=== PATIENT | male | born 1935 | race Caucasian/White ===

== ENCOUNTER 2021-06-16 15:42 | Inpatient (IN) | payer MEDICARE ==
[~2021-06-16] VITALS: Ht 180.3 cm; Wt 79.1 kg
[2021-06-16 16:42] LABS: BASO % 0.3 % (0.0-2.0); EOS # 0.2 (0.0-0.7); EOS % 1.5 % (0-4.0); GRAN # 12.4 (1.4-6.5); GRAN % 87.4 % (42.2-75.2); HEMOGLOBIN 13.6 g/dl (13.5-18.0); LYMPH # 0.4 (1.2-3.4); LYMPH % 2.8 % (20.0-51.0); MEAN CELL VOLUME 94 fl (80.0-100.0); MEAN CORPUSCULAR HEMOGLOBIN 31 pg (27.0-31.0); MEAN CORPUSCULAR HGB CONC 33 g/dl (33.0-37.0); MEAN PLATELET VOLUME 9.4 fl (7.4-10.4); MONO # 1.1 (0.1-0.6); MONO % 7.6 % (1.7-9.3); PLATELET COUNT 314 K/mm3 (130-400); RED BLOOD COUNT 4.36 M/mm3 (4.20-5.60); REDCELL DISTRIBUTION WIDTH-CV 12.6 % (11.5-14.5)
[2021-06-16 16:56] LABS: BILIRUBIN,TOTAL 0.9 mg/dL (0.2-1.2); C-REACTIVE PROTEIN 0.3 mg/dL (0.00-0.50); CALCIUM 9.7 mg/dL (8.4-10.2); CREATININE, serum 1.62 mg/dL (0.72-1.25); POTASSIUM 4.5 mmol/L (3.5-4.5); TOTAL PROTEIN 7.8 gm/dL (6.2-8.1)
[2021-06-16 19:16] LABS: MAGNESIUM 1.7 mg/dL (1.6-2.6)
[2021-06-16 19:23] LABS: TROPONIN-I 0.022 ng/mL (0.00-0.033)
[2021-06-16] MEDS ORDERED: PRESERVISION1 SGL PO (20:53)
[2021-06-16] MEDS ORDERED: LANTUS SOLOS100 U/ML SQ (20:53)
[2021-06-16] MEDS ORDERED: PRILOTC PO (20:55)
[2021-06-16] MEDS ORDERED: REFRESH PLUS 00.4 M1 OP (20:55)
[2021-06-16] MEDS ORDERED: HYGROTON 2525 MG/TAB PO (20:56)
[2021-06-16] MEDS ORDERED: VOLTAREN GEL 1%1 TU TP (20:56)
[2021-06-16] MEDS ORDERED: GLUCOTROL10 MG PO (20:56)
[2021-06-16] MEDS ORDERED: PRINIVIL40 MG PO (20:57)
[2021-06-16] MEDS ORDERED: ASPIRIN 81M81 MG/TA2 PO (20:57)
[2021-06-16] MEDS ORDERED: ONE-A-DAY ESSE1 EACH PO (20:57)
[2021-06-16] MEDS ORDERED: VALIUM 5MG T5 MG/TAB PO (20:57)
[2021-06-16] MEDS ORDERED: MELATONIN5 M1 SL (20:58)
[2021-06-16] MEDS ORDERED: ADVIL PM 38 MG-1 TAB PO (20:58)
[2021-06-16] MEDS ORDERED: TYLENOL 8 HR PO (20:59)
[2021-06-16 22:20] VITALS: BP 120/73; PULSE 79; TEMP 98.6
--- NOTE | 2021-06-16 22:20 | NUR ---
Arrived to room 316 from ED via stretcher. A&Ox3. Oriented to room and policy. Denies shortness of breath/pain/nausea. Admission assessment complete. Med rec commpleted. VS stable. Very unsteady gait. States he just feels very weak. Plan of care discussed for this shift to include meds/IV fluids/calling for assistance to bathroom due to high fall risk/calling for questions/concerns. Verbalizes understanding/denies needs. Call light in reach/bed alarm on. Will monitor.
[2021-06-16 23:35] VITALS: BP 124/70; PULSE 79; TEMP 98.4
[2021-06-17] VITALS (9 sets, daily range): BP systolic 111–132; BP diastolic 46–76; PULSE 64–89; TEMP 97.7–98.5
[2021-06-17 03:25] LABS: COLLECTION METHOD CLEAN CATCH
[2021-06-17 03:32] LABS: MUCOUS Present /lpf; PH 5 (5-8); SQUAMOUS EPITHELIAL 0-2 /hpf; URINE APPEARANCE Clear; URINE BACTERIA None Seen /hpf; URINE BILIRUBIN Negative (NEGATIVE); URINE BLOOD Negative (NEGATIVE); URINE COLOR Yellow; URINE GLUCOSE Negative (NEGATIVE); URINE KETONE Negative (NEGATIVE); URINE LEUKOCYTE ESTERASE Negative (NEGATIVE); URINE NITRATE Negative (NEGATIVE); URINE PROTEIN(semi-quant) Negative (NEGATIVE); URINE RBC 0-2 /hpf; URINE UROBILINOGEN Negative (NEGATIVE)
--- NOTE | 2021-06-17 06:08 | NUR ---
Rested well this shift. VS remaine stable. No N/V/D. Neuros WNL. LR@100mls/hr infusing without difficulty. Denies current questions/concerns. Call light in reach. Will monitor.
[2021-06-17 07:06] LABS: CALCIUM 8.5 mg/dL (8.4-10.2); CREATININE, serum 1.32 mg/dL (0.72-1.25); POTASSIUM 4.2 mmol/L (3.5-4.5)
[2021-06-17 08:33] LABS: BASO % 0.1 % (0.0-2.0); EOS # 0.2 (0.0-0.7); EOS % 2.2 % (0-4.0); GRAN # 7.1 (1.4-6.5); GRAN % 76.3 % (42.2-75.2); HEMOGLOBIN 11.8 g/dl (13.5-18.0); LYMPH # 1.3 (1.2-3.4); LYMPH % 13.5 % (20.0-51.0); MEAN CELL VOLUME 96 fl (80.0-100.0); MEAN CORPUSCULAR HEMOGLOBIN 32 pg (27.0-31.0); MEAN CORPUSCULAR HGB CONC 33 g/dl (33.0-37.0); MEAN PLATELET VOLUME 10.3 fl (7.4-10.4); MONO # 0.7 (0.1-0.6); MONO % 7.6 % (1.7-9.3); PLATELET COUNT 273 K/mm3 (130-400); REDCELL DISTRIBUTION WIDTH-CV 13.1 % (11.5-14.5)
--- NOTE | 2021-06-17 08:36 | NUR ---
Pt assessment complete. Pt laying in bed upon entry, he is A/O x4. His breathing is even and unlabored on RA. Pt denies any SOB. No dizziness at this time. Orthostatics obtained. Pt denies having any further stools since arriving to the floor. Pt under the impression he is having a colonoscopy this am, discussed POC with patient. Pt verbalizes understanding. Has no further needs at this time. Call light within reach.
[2021-06-17 08:39] LABS: HEMATOCRIT 35.4 % (42.0-52.0)
[2021-06-17] MEDS ORDERED: REFRESH TEARS 330 ML OP (10:25)
--- NOTE | 2021-06-17 11:08 | NUR ---
SW met with patient with his dtr - Kaila , was present. Patient lives alone in [place], is fairly independent but has macular degeneration and is hard of hearing so he no longer drives. Dtr states she lives 3 miles away and checks on him often. Patient has walkers and a cane. Patient will be getting a colonoscopy. PCP is Dr. Ridley and dtr is TOO. SW will continue to follow for d/c needs and planning.
[2021-06-17 15:32] LABS: TOTAL IRON BINDING CAPACITY 296 ug/dL (261-462)
[2021-06-17 16:13] LABS: IRON,SERUM 41 ug/dL (50-175)
--- NOTE | 2021-06-17 18:32 | NUR ---
No syncopal episodes through the day. Denied any dizziness or presyncopal episodes. Bowel prep started, POC discussed with patient. No needs at this time. Call light within reach.
[2021-06-18] VITALS (7 sets, daily range): BP systolic 120–149; BP diastolic 61–65; PULSE 18–80; TEMP 97.3–97.7
--- NOTE | 2021-06-18 05:47 | NUR ---
pt remained npo over night, bowel prep complete, pt's bowel clear, l/r infusing at 150cc/hr to left fa iv. all medications adminsitered as ordered. this nurse conducted pre-op medical floor checklist with pt. all questions/ concerns answered. bed alarm on, bed low. call light within reach.
[2021-06-18 06:41] LABS: HEMOGLOBIN 11.4 g/dl (13.5-18.0); MEAN CELL VOLUME 95 fl (80.0-100.0); MEAN CORPUSCULAR HEMOGLOBIN 32 pg (27.0-31.0); MEAN CORPUSCULAR HGB CONC 33 g/dl (33.0-37.0); MEAN PLATELET VOLUME 10.1 fl (7.4-10.4); PLATELET COUNT 266 K/mm3 (130-400); RED BLOOD COUNT 3.61 M/mm3 (4.20-5.60); REDCELL DISTRIBUTION WIDTH-CV 12.7 % (11.5-14.5)
[2021-06-18 06:48] LABS: HEMATOCRIT 34.3 % (42.0-52.0)
[2021-06-18 07:20] LABS: CALCIUM 9.2 mg/dL (8.4-10.2); CREATININE, serum 0.99 mg/dL (0.72-1.25); POTASSIUM 3.7 mmol/L (3.5-4.5)
[2021-06-18] MEDS ORDERED: CIPRO 500MG TA500 MG PO (10:29)
[2021-06-18] MEDS ORDERED: FLAGYL500 MG PO (10:30)
[2021-06-18] MEDS ORDERED: B-121000 MCG PO (10:39)
--- NOTE | 2021-06-18 12:27 | NUR ---
PT DISCHARGE HOME ON STABLE CONDITION. D/C INSTRUCTIONS REVIEWED WITH PT. QUESTIONS AND CONCERNS ADDRESSED. PT ESCORTED TO MAIN EXIT VIA WC
--- NOTE | 2021-06-18 12:28 | NUR ---
First visit from the aerographer. prayed with patient. No other needs right now.
== END 2021-06-18 12:30 | disposition home or self-care (01) | DRG 391 ==
LOC: COL.ER 15:42 → EDBD 15:42 → MEDICAL 20:38
PROVIDERS: Family Medicine; Nurse Practitioner; Nurse Practitioner Family; Physician Assistant; Surgery; ADMIT Internal Medicine
PROC: 0DBB8ZX Excision of Ileum, Via Natural or Artificial Opening Endoscopic, Diagnostic (ICD-10-PCS; 2021-06-18)
PROC: 0DBK8ZX Excision of Ascending Colon, Via Natural or Artificial Opening Endoscopic, Diagnostic (ICD-10-PCS; principal; 2021-06-18 09:00)
DX: K52.9 Noninfective gastroenteritis and colitis, unspecified (principal); R65.11 Systemic inflammatory response syndrome (SIRS) of non-infectious origin with acute organ dysfunction; N17.9 Acute kidney failure, unspecified; Z20.822 Contact with and (suspected) exposure to COVID-19; I10 Essential (primary) hypertension; E11.9 Type 2 diabetes mellitus without complications; Z79.4 Long term (current) use of insulin; Z87.891 Personal history of nicotine dependence; H35.30 Unspecified macular degeneration; Z88.5 Allergy status to narcotic agent; Z88.0 Allergy status to penicillin; I95.1 Orthostatic hypotension; E86.0 Dehydration; D64.9 Anemia, unspecified; R10.30 Lower abdominal pain, unspecified; K21.9 Gastro-esophageal reflux disease without esophagitis; D17.79 Benign lipomatous neoplasm of other sites; Z79.82 Long term (current) use of aspirin
CPT/HCPCS: OP; 99232-AI; 99239; G0378; J0696; J1644; J1815; J3010; J7030; J7120; Q9967

== ENCOUNTER 2021-11-22 16:16 | Inpatient (IN) | payer MEDICARE ==
[~2021-11-22] VITALS: Ht 182.9 cm; Wt 79.8 kg
[~2021-11-22 16:16] MED LIST: ADVIL PM 38 MG-1 TAB PO; ASPIRIN 81M81 MG/TA2 PO; B-121000 MCG PO; CIPRO 500MG TA500 MG PO; FLAGYL500 MG PO; GLUCOTROL10 MG PO; HYGROTON 2525 MG/TAB PO; LANTUS SOLOS100 U/ML SQ; MELATONIN5 M1 SL; ONE-A-DAY ESSE1 EACH PO; PRESERVISION1 SGL PO; PRILOTC PO; PRINIVIL40 MG PO; REFRESH PLUS 00.4 M1 OP; REFRESH TEARS 330 ML OP; TYLENOL 8 HR PO; VALIUM 5MG T5 MG/TAB PO; VOLTAREN GEL 1%1 TU TP
[2021-11-22 17:04] LABS: BASO # 0.1 K/mm3 (0.0-0.2); BASO % 0.7 % (0.0-2.0); EOS # 0.2 K/mm3 (0.0-0.7); EOS % 2.3 % (0.0-4.0); GRAN # 6.5 K/mm3 (1.4-6.5); GRAN % 64.1 % (42.2-75.2); HEMATOCRIT 39.4 % (42.0-52.0); HEMOGLOBIN 12.6 g/dl (13.5-18.0); LYMPH # 2.4 K/mm3 (1.2-3.4); LYMPH % 23.3 % (20.0-51.0); MEAN CELL VOLUME 86 fl (80.0-100.0); MEAN CORPUSCULAR HEMOGLOBIN 28 pg (27-31); MEAN CORPUSCULAR HGB CONC 32 g/dl (33.0-37.0); MEAN PLATELET VOLUME 10.4 fl (7.4-10.4); MONO # 0.9 K/mm3 (0.1-0.6); MONO % 9.2 % (1.7-9.3); PLATELET COUNT 334 K/mm3 (130-400); RED BLOOD COUNT 4.59 M/mm3 (4.20-5.60); REDCELL DISTRIBUTION WIDTH-CV 14.1 % (11.5-14.5)
[2021-11-22 17:20] LABS: BILIRUBIN,TOTAL 0.8 mg/dL (0.2-1.2); CALCIUM 9.5 mg/dL (8.4-10.2); CREATININE, serum 1.25 mg/dL (0.72-1.25); POTASSIUM 3.7 mmol/L (3.5-4.5); TOTAL PROTEIN 7.7 gm/dL (6.2-8.1)
[2021-11-22 17:45] LABS: TROPONIN-I 0.114 ng/mL (0.00-0.033)
[2021-11-22] MEDS ORDERED: ELIQUIS 5MG PO (19:09)
[2021-11-22] MEDS ORDERED: ZESTRIL 20MG TA20 MG PO (19:10)
[2021-11-22] MEDS ORDERED: LOPRESSOR 225 MG/TAB PO (19:11)
[2021-11-22] MEDS ORDERED: LOPRESSOR 550 MG/TAB PO (19:12)
[2021-11-22] MEDS ORDERED: PRINIVIL40 MG PO (19:13)
[2021-11-22 19:22] LABS: COLLECTION METHOD CLEAN CATCH
[2021-11-22 19:39] LABS: PH 5 (5-8); SQUAMOUS EPITHELIAL None Seen /hpf (0-10); URINE APPEARANCE Clear (CLEAR/HAZY); URINE BACTERIA None Seen /hpf (NONE SEEN); URINE BILIRUBIN Negative (NEGATIVE); URINE BLOOD Negative (NEGATIVE); URINE COLOR Straw (YELLOW); URINE GLUCOSE Negative (NEGATIVE); URINE KETONE Negative (NEGATIVE); URINE LEUKOCYTE ESTERASE Negative (NEGATIVE); URINE NITRATE Negative (NEGATIVE); URINE PROTEIN(semi-quant) Negative (NEGATIVE); URINE RBC 0-2 /hpf (0-2); URINE UROBILINOGEN Negative (NEGATIVE)
[2021-11-22 19:54] LABS: PARTIAL THROMBOPLASTIN TIME 35.7 SECONDS (26.0-37.0)
[2021-11-22 21:01] VITALS: BP 119/74; PULSE 63; TEMP 97.6
[2021-11-22 22:24] LABS: TSH w REFLEX 2.053 uIU/mL (0.350-4.940)
[2021-11-22 23:47] VITALS: BP 108/73; PULSE 108; TEMP 97.4
--- NOTE | 2021-11-23 00:14 | NUR ---
PATIENT UP TO ROOM 351. ALERT AND ORIENTED. C/O CHEST PAIN AND PRN MORPHINE GIVEN. STARTED ON HEPARIN GTT AT 14.5 ML/HR. INITIATED FLUID RESTRICTION. K+ PROTOCOL STARTED AND DOSED WITH 2 OF EFFERK. MED RX DONE. ASSESSMENTS COMPLETED. VSS. PATIENT ON ROOM AIR. IV TO R AC PATENT WITH HEPARIN GTT INFUSING. TELE IN PLACE. NO FURTHER NEEDS. CALL LIGHT WITHIN REACH.
[2021-11-23 04:32] LABS: BASO # 0.1 K/mm3 (0.0-0.2); BASO % 0.7 % (0.0-2.0); EOS # 0.3 K/mm3 (0.0-0.7); EOS % 3.1 % (0.0-4.0); GRAN # 4.7 K/mm3 (1.4-6.5); HEMATOCRIT 37.1 % (42.0-52.0); HEMOGLOBIN 11.7 g/dl (13.5-18.0); LYMPH # 3.1 K/mm3 (1.2-3.4); LYMPH % 33.9 % (20.0-51.0); MEAN CELL VOLUME 87 fl (80.0-100.0); MEAN CORPUSCULAR HEMOGLOBIN 28 pg (27-31); MEAN CORPUSCULAR HGB CONC 32 g/dl (33.0-37.0); MEAN PLATELET VOLUME 9.9 fl (7.4-10.4); PLATELET COUNT 266 K/mm3 (130-400); RED BLOOD COUNT 4.25 M/mm3 (4.20-5.60); REDCELL DISTRIBUTION WIDTH-CV 14.2 % (11.5-14.5)
[2021-11-23 04:42] LABS: CALCIUM 9.2 mg/dL (8.4-10.2); CREATININE, serum 0.99 mg/dL (0.72-1.25); POTASSIUM 3.8 mmol/L (3.5-4.5)
[2021-11-23 04:48] VITALS: BP 126/85; PULSE 93; TEMP 98.1
--- NOTE | 2021-11-23 06:26 | NUR ---
patient c/o sob and dizziness/lightheadedness. vss. call to ed quispe who noticed 0400 blood sugar from lab draws was 66. gave 4 oz of orange juice. rechecked in 15 was 50. gave additional 4 oz of orange juice and blood sugars were 87.
[2021-11-23 07:26] VITALS: BP 101/68; PULSE 72; TEMP 97.3
--- NOTE | 2021-11-23 11:12 | NUR ---
PT HAD SLIGHT HYPOGLYCEMIA THIS MORNING. GIVEN OJ TO HELP BRING IT UP. WBG CAME UP TO 87. HELD SS INSULIN WELL LEVEMIR PER DR. DE LEON'S ORDERS. NO OTHER CONCERNS AT THIS TIME. DENIES ANY PAIN.
[2021-11-23 11:24] VITALS: BP 111/80; PULSE 64; TEMP 98.1
--- NOTE | 2021-11-23 11:55 | NUR ---
LAB CALLED WITH CRITICAL PTT AT 107.2 THIS IS WITHIN GOAL FOR THE HEPARIN GTT. PER PROTOCOL THE HEPARIN GTT WILL REMAIN AT CURRENT RATE.
--- NOTE | 2021-11-23 12:53 | NUR ---
Sw met with pt to complete intake. Pt lives at home alone, he is a . He has one child, Kaila [phone]. The pt reports he has DPAO-HC and paperwork and is independent on all ADLs, but does not drive anymore and uses a glucometer,cane. PCP is Jose Eduardo Ortiz and gets his medications from [facility] and [place] via mail. DC: Home.
--- NOTE | 2021-11-23 15:03 | NUR ---
PT CALLED TO TELL RN THAT THE MORPHINE HELPED WITH HIS PAIN. NO OTHER CONCERNS.
[2021-11-23 15:31] VITALS: BP 115/79; PULSE 93; TEMP 97.5
[2021-11-23 19:49] VITALS: BP 135/92; PULSE 54; TEMP 97.5
[2021-11-24] VITALS (7 sets, daily range): BP systolic 109–137; BP diastolic 62–95; PULSE 48–110; TEMP 97.3–98
--- NOTE | 2021-11-24 05:21 | NUR ---
PT HAD UNEVENTFUL NIGHT THIS SHIFT, HEP GTT REMAINS AT 14.5ML/HR, THIS MORNING HEPXA PENDING, PT I&O NOTED AND RECORDED, HOIST MECHANIC TOOK PT FOR WALK ON FLOOR, PT PLEASED, ALL NEEDS MET THIS SHIFT. CALL LIGHT WITHIN REACH.
[2021-11-24 06:28] LABS: HEMATOCRIT 38.4 % (42.0-52.0); HEMOGLOBIN 12.4 g/dl (13.5-18.0); MEAN CELL VOLUME 85 fl (80.0-100.0); MEAN CORPUSCULAR HEMOGLOBIN 28 pg (27-31); MEAN CORPUSCULAR HGB CONC 32 g/dl (33.0-37.0); MEAN PLATELET VOLUME 10.8 fl (7.4-10.4); PLATELET COUNT 284 K/mm3 (130-400); RED BLOOD COUNT 4.51 M/mm3 (4.20-5.60); REDCELL DISTRIBUTION WIDTH-CV 14.5 % (11.5-14.5)
[2021-11-24 06:43] LABS: CALCIUM 9.7 mg/dL (8.4-10.2); CREATININE, serum 1.1 mg/dL (0.72-1.25)
--- NOTE | 2021-11-24 08:06 | NUR ---
Pt assessment complete. Pt sitting up on the side of the bed eating breakfast at this time. He is A/O x4. His breathing is currently even and unlabored on RA. Pt reports some SOB and dizziness with exertion. Denies any pain. No N/V/D. Heparin drip per protocol. No needs at this time. Call light within reach.
[2021-11-24 11:22] LABS: HEMOGLOBIN 11.9 g/dl (13.5-18.0); MEAN CELL VOLUME 85 fl (80.0-100.0); MEAN CORPUSCULAR HEMOGLOBIN 28 pg (27-31); MEAN CORPUSCULAR HGB CONC 32 g/dl (33.0-37.0); MEAN PLATELET VOLUME 10.4 fl (7.4-10.4); PLATELET COUNT 273 K/mm3 (130-400); REDCELL DISTRIBUTION WIDTH-CV 14.6 % (11.5-14.5)
[2021-11-24 11:31] LABS: HEMATOCRIT 36.7 % (42.0-52.0)
[2021-11-24 11:36] LABS: CALCIUM 9.1 mg/dL (8.4-10.2); CREATININE, serum 1.07 mg/dL (0.72-1.25); POTASSIUM 4.5 mmol/L (3.5-4.5)
--- NOTE | 2021-11-24 22:47 | NUR ---
PATIENT DOING WELL TONIGHT. ALERT AND ORIENTED. DENIES PAIN. PTT 75.2 WHICH IS THERAPUETIC RANGE. HEP GTT RUNNING AT 12.5. ATTEMPT TO START ANOTHER IV X2 WITH NO SUCCESS. IVF INFUSING TO R AC WITH HEP GTT Y SITED IN. DISCUSSED THIS WITH RUFUS TRINIDAD WHO AGREED THIS WAS OKAY. TELE REPORTING AFIB. HS MEDS GIVEN. NO FURTHER NEEDS AT THIS TIME. PATIENT RESTING COMFORTABLY IN BED. CALL LIGHT WITHIN REACH.
[2021-11-25] VITALS (18 sets, daily range): BP systolic 19–142; BP diastolic 37–123; PULSE 55–109; TEMP 97.2–98.4
[2021-11-25 03:11] LABS: BASO # 0.1 K/mm3 (0.0-0.2); BASO % 0.5 % (0.0-2.0); EOS # 0.2 K/mm3 (0.0-0.7); EOS % 2.6 % (0.0-4.0); GRAN # 5.6 K/mm3 (1.4-6.5); HEMOGLOBIN 11.6 g/dl (13.5-18.0); LYMPH # 2.6 K/mm3 (1.2-3.4); LYMPH % 27.6 % (20.0-51.0); MEAN CELL VOLUME 85 fl (80.0-100.0); MEAN CORPUSCULAR HEMOGLOBIN 28 pg (27-31); MEAN CORPUSCULAR HGB CONC 33 g/dl (33.0-37.0); MEAN PLATELET VOLUME 10.5 fl (7.4-10.4); MONO # 0.9 K/mm3 (0.1-0.6); MONO % 9.9 % (1.7-9.3); PLATELET COUNT 251 K/mm3 (130-400); RED BLOOD COUNT 4.17 M/mm3 (4.20-5.60); REDCELL DISTRIBUTION WIDTH-CV 14.5 % (11.5-14.5)
[2021-11-25 03:13] LABS: HEMATOCRIT 35.5 % (42.0-52.0)
[2021-11-25 03:40] LABS: CALCIUM 8.9 mg/dL (8.4-10.2); CREATININE, serum 1.04 mg/dL (0.72-1.25); POTASSIUM 4.5 mmol/L (3.5-4.5)
--- NOTE | 2021-11-25 09:08 | NUR ---
Scheduled medications held due to procedure. Shift assessment performed. Patient A&O. VSS. Currently on RA. Patient denies any pain, discomfort, SOA, or further needs at this time. Heparin gtt running as ordered. Consent for heart cath, hilton/cv signed and on the chart. Call light in reach. Fall percautions in place.
--- NOTE | 2021-11-25 09:27 | NUR ---
ANESTHESIA HERE FOR NANCI/DCCV. SEE ANESTHESIA RECORD FOR MEDS AND ASSESSMENT. SEE MERGE FOR ALL MEDICATION ADMINISTRATIONS FOR LHC WELL INTRA/POST PROCEDURE SEDATION ASSESSMENTS.
--- NOTE | 2021-11-25 09:30 | NUR ---
Patient down for heart cath and hilton/cardioversion.
--- NOTE | 2021-11-25 10:52 | NUR ---
Patient back from Heart cath. Radial compression band in place. No s/s of complications at this time. Dynmap in use for post op vitals. Patient denies any pain, discomfort, SOA, or further needs at this time. Call light in reach. Fall percautions in place. VSS. Patient A&O. Daughter at the bedside.
--- NOTE | 2021-11-25 13:41 | NUR ---
2mLs of air taken out of radial band. No bleeding noted. Will attempt to take more out of band at recommended time.
--- NOTE | 2021-11-25 13:43 | NUR ---
Attempted to let 5 ml of air from radial band. Site started bleeding. Air reinserted. Bleeding came to a stop. Will continue to monitor site.
--- NOTE | 2021-11-25 14:52 | NUR ---
Compression band loosened by 3ml of air. No bleeding noted.
--- NOTE | 2021-11-25 15:58 | NUR ---
Patient has had an ok day. Heart cath completed. No interventions done. NANCI and Cardioversion done. Patient continues to be in SR. Patient denies pain, discomfort, SOA, or further needs at this time. VSS. Patient A&O. Daughter at the bedside. Call light in reach. Fall percautions in place.
--- NOTE | 2021-11-25 20:50 | NUR ---
Patient is resting in bed, alert and oriented x 4, Tachycardic 100-106's. Assessment completed, medications provided. No other needs at this time. Call light within reach.
[2021-11-26] VITALS (8 sets, daily range): BP systolic 98–139; BP diastolic 62–123; PULSE 54–104; TEMP 97.2–98.1
[2021-11-26 06:27] LABS: BASO # 0.1 K/mm3 (0.0-0.2); BASO % 0.6 % (0.0-2.0); EOS # 0.2 K/mm3 (0.0-0.7); EOS % 1.9 % (0.0-4.0); GRAN # 5.3 K/mm3 (1.4-6.5); GRAN % 66.9 % (42.2-75.2); HEMOGLOBIN 11.5 g/dl (13.5-18.0); LYMPH # 1.6 K/mm3 (1.2-3.4); MEAN CELL VOLUME 87 fl (80.0-100.0); MEAN CORPUSCULAR HEMOGLOBIN 28 pg (27-31); MEAN CORPUSCULAR HGB CONC 32 g/dl (33.0-37.0); MEAN PLATELET VOLUME 10.6 fl (7.4-10.4); MONO # 0.8 K/mm3 (0.1-0.6); MONO % 10.3 % (1.7-9.3); PLATELET COUNT 251 K/mm3 (130-400); RED BLOOD COUNT 4.15 M/mm3 (4.20-5.60); REDCELL DISTRIBUTION WIDTH-CV 14.6 % (11.5-14.5)
--- NOTE | 2021-11-26 06:30 | NUR ---
Patient has had a calm night. Most of the night his HR in 100-110. Right now at 80-90's. Report will be given to day RN.
[2021-11-26 06:35] LABS: HEMATOCRIT 35.9 % (42.0-52.0)
[2021-11-26 06:50] LABS: CREATININE, serum 0.96 mg/dL (0.72-1.25); POTASSIUM 4.6 mmol/L (3.5-4.5)
--- NOTE | 2021-11-26 09:16 | NUR ---
Scheduled medication given. Shift assessment performed. Patient currently on RA, but states that he has SOB upon exertion. Right radial site covered with bandage, site is clean, dry, and intact. Patient denies any pain, discomfort, or further needs at this time. VSS. Patient A&O. Call light in reach. Fall percautions in place.
--- NOTE | 2021-11-26 18:30 | NUR ---
Patient has had an uneventful day. VSS. Patient A&O. Denies any pain, discomfort, or further needs a this time. Does state that he has some SOB upon exertion. Call light in reach. Fall percautions in place.
[2021-11-26 21:42] LABS: PARTIAL THROMBOPLASTIN TIME 36.1 SECONDS (26.0-37.0)
--- NOTE | 2021-11-26 22:30 | NUR ---
Patient is resting in bed, alert and oriented x 4. Tachycardic 100-105. Denies pain, nausea, vomiting, dizziness. Telemetry in place, NSR. Assessment completed, medications provided. No other needs at this time. Call light within reach.
[2021-11-27 03:26] VITALS: BP 100/65; PULSE 92; TEMP 97.4
[2021-11-27 04:23] LABS: BASO % 0.4 % (0.0-2.0); EOS # 0.2 K/mm3 (0.0-0.7); EOS % 3.1 % (0.0-4.0); GRAN # 4.4 K/mm3 (1.4-6.5); GRAN % 59.3 % (42.2-75.2); HEMOGLOBIN 11.2 g/dl (13.5-18.0); LYMPH # 1.9 K/mm3 (1.2-3.4); LYMPH % 25.2 % (20.0-51.0); MEAN CELL VOLUME 87 fl (80.0-100.0); MEAN CORPUSCULAR HEMOGLOBIN 28 pg (27-31); MEAN CORPUSCULAR HGB CONC 32 g/dl (33.0-37.0); MEAN PLATELET VOLUME 10.6 fl (7.4-10.4); MONO # 0.9 K/mm3 (0.1-0.6); MONO % 11.7 % (1.7-9.3); PLATELET COUNT 229 K/mm3 (130-400); RED BLOOD COUNT 4.08 M/mm3 (4.20-5.60); REDCELL DISTRIBUTION WIDTH-CV 14.6 % (11.5-14.5)
[2021-11-27 04:25] LABS: HEMATOCRIT 35.4 % (42.0-52.0)
[2021-11-27 04:36] LABS: CALCIUM 9.4 mg/dL (8.4-10.2); CREATININE, serum 1.04 mg/dL (0.72-1.25); MAGNESIUM 1.8 mg/dL (1.6-2.6)
--- NOTE | 2021-11-27 04:45 | NUR ---
pt bladder ultrasound showed 261ml after voiding 10ml.
[2021-11-27 04:51] LABS: PARTIAL THROMBOPLASTIN TIME 64.8 SECONDS (26.0-37.0)
--- NOTE | 2021-11-27 06:31 | NUR ---
Pt continue getting hep drip 16 ml/hr. HR 90's-100's. Report will be given to day RN.
[2021-11-27 08:20] VITALS: BP 118/76; PULSE 92; TEMP 97.7
--- NOTE | 2021-11-27 08:45 | NUR ---
Shift assessment complete. Pt resting in bed A&Ox4. Heart RRR, occasional episodes of tachycardia up to 110. Lungs diminished to auscultation all ramos. Abdomen distended and firm. Pt reports mild intermittent tenderness to RLQ. States distention and tenderness is his baseline. Hospitalist notified. Denies pain, chest pain, SOA, nausea, dizziness. Heparin drip running at 1600 units/hr per order/protocol. Continuing to monitor.
[2021-11-27 11:19] VITALS: BP 106/78; PULSE 86; TEMP 97.5
[2021-11-27 11:44] LABS: PARTIAL THROMBOPLASTIN TIME 122.5 SECONDS (26.0-37.0)
--- NOTE | 2021-11-27 15:20 | NUR ---
Social Work student followed up with patient regarding discharge plans. Patient states that he is doing good, and that he is still planning to discharge home with his when ready. Patient had a question regarding when his medications would be sent to the PA in [place], so STACI student brought it to STACI [place], who then called [facility], to further investigate. Larissa informed STACI that cardiology was still fine-tuning the medications, and therefore it will not be sent until likely the day of discharge. Larissa also said that she had called the daughter yesterday (11/26) to update her of this. STACI lenz then went back to patient and updated him of this as well. Patient had no further questions or concerns at this time.
[2021-11-27 16:30] VITALS: BP 113/72; PULSE 84; TEMP 97.9
[2021-11-27 20:26] VITALS: BP 116/81; PULSE 85; TEMP 97.6
--- NOTE | 2021-11-27 21:00 | NUR ---
Patient is resting in bed, alert and oriented x 4, VSS, Telemetry in place. NSR. Receiving Hep drip at 15ml/hr. Assessment completed, medications provided. No other needs at this time. Call ligths within reach.
[2021-11-27 23:23] VITALS: BP 93/60; PULSE 80; TEMP 97.2
[2021-11-28 04:46] VITALS: BP 127/77; PULSE 88; TEMP 97.4
[2021-11-28 06:15] LABS: BASO # 0.1 K/mm3 (0.0-0.2); BASO % 0.7 % (0.0-2.0); EOS # 0.2 K/mm3 (0.0-0.7); EOS % 2.3 % (0.0-4.0); GRAN # 5.3 K/mm3 (1.4-6.5); GRAN % 60.3 % (42.2-75.2); HEMOGLOBIN 11.7 g/dl (13.5-18.0); LYMPH # 2.3 K/mm3 (1.2-3.4); MEAN CELL VOLUME 84 fl (80.0-100.0); MEAN CORPUSCULAR HEMOGLOBIN 27 pg (27-31); MEAN CORPUSCULAR HGB CONC 33 g/dl (33.0-37.0); MEAN PLATELET VOLUME 10.9 fl (7.4-10.4); MONO # 0.9 K/mm3 (0.1-0.6); MONO % 10.5 % (1.7-9.3); PLATELET COUNT 255 K/mm3 (130-400); RED BLOOD COUNT 4.29 M/mm3 (4.20-5.60); REDCELL DISTRIBUTION WIDTH-CV 14.6 % (11.5-14.5)
--- NOTE | 2021-11-28 06:16 | NUR ---
Patient had a calm night. His hep drip is at goal. Has been NPO. Report will be given to day RN.
[2021-11-28 06:22] LABS: HEMATOCRIT 35.9 % (42.0-52.0)
[2021-11-28 06:32] LABS: CALCIUM 9.2 mg/dL (8.4-10.2); CREATININE, serum 1.33 mg/dL (0.72-1.25); POTASSIUM 4.1 mmol/L (3.5-4.5)
[2021-11-28 08:16] VITALS: BP 118/82; PULSE 87; TEMP 97.4
--- NOTE | 2021-11-28 11:45 | NUR ---
Heparin gtt stopped at this time per Radiology for thoracetesis scheduled at 2595
[2021-11-28 12:09] VITALS: BP 114/55; PULSE 47; TEMP 99
--- NOTE | 2021-11-28 15:15 | NUR ---
Patient arrived back to room 351 from radiology s/p Right sided thoracentesis, it was reported to me that they removed 1250ml, post CXR was completed and no Pneumothorax noted, lung sounds are are CTA/ diminished bases, patient reports he already feels improved and can notice a difference in his breathing, plans for left sided thora tommorrow and I have discussed plan with hospitalist who will put the orders in for this
[2021-11-28 15:45] LABS: PLEURAL FLUID APPEARANCE HAZY; PLEURAL FLUID COLOR YELLOW; PLEURAL FLUID RBC 3000 /mm3 (0-0); PLEURAL FLUID WBC 1060 /mm3
[2021-11-28 16:18] VITALS: BP 124/90; PULSE 90; TEMP 97.9
[2021-11-28 19:31] VITALS: BP 104/63; PULSE 81; TEMP 98.2
--- NOTE | 2021-11-28 21:47 | NUR ---
PT PTT RETURNED AT 83.8, PER PROTCOL, GOAL , NO CHANGE, HEP GTT CONTINUES TO INFUSE AT 1500U/HR.
[2021-11-28 23:18] VITALS: BP 112/76; PULSE 83; TEMP 97.4
[2021-11-29] VITALS (7 sets, daily range): BP systolic 105–119; BP diastolic 67–83; PULSE 76–85; TEMP 97.4–97.9
--- NOTE | 2021-11-29 04:57 | NUR ---
pt had uneventful night this shift, npo status remained, ptt pending this am, hep gtt (at 1500U/HR) will be placed on hold at 0630 for preparation of scheudled thoracentesis this am. call light within reach.
--- NOTE | 2021-11-29 06:39 | NUR ---
PT HEP GTT PLACED ON HOLD AT THIS TIME PER ORDER.
[2021-11-29 06:55] LABS: BASO # 0.1 K/mm3 (0.0-0.2); BASO % 0.6 % (0.0-2.0); EOS # 0.2 K/mm3 (0.0-0.7); EOS % 2.4 % (0.0-4.0); GRAN % 67.1 % (42.2-75.2); HEMOGLOBIN 11.7 g/dl (13.5-18.0); LYMPH # 1.8 K/mm3 (1.2-3.4); LYMPH % 19.9 % (20.0-51.0); MEAN CELL VOLUME 84 fl (80.0-100.0); MEAN CORPUSCULAR HEMOGLOBIN 27 pg (27-31); MEAN CORPUSCULAR HGB CONC 32 g/dl (33.0-37.0); MEAN PLATELET VOLUME 11.3 fl (7.4-10.4); MONO # 0.9 K/mm3 (0.1-0.6); MONO % 9.7 % (1.7-9.3); PLATELET COUNT 253 K/mm3 (130-400); RED BLOOD COUNT 4.28 M/mm3 (4.20-5.60); REDCELL DISTRIBUTION WIDTH-CV 14.8 % (11.5-14.5)
[2021-11-29 06:59] LABS: HEMATOCRIT 36.1 % (42.0-52.0)
[2021-11-29 07:42] LABS: CALCIUM 9.1 mg/dL (8.4-10.2); CREATININE, serum 1.22 mg/dL (0.72-1.25); POTASSIUM 4.1 mmol/L (3.5-4.5)
--- NOTE | 2021-11-29 08:30 | NUR ---
Shift assessment complete. Pt resting in bed. A&Ox4. Vitals stable. Heart RRR. Left lower lobe diminished to auscultation, right lung coarse. Pt denies SOA, chest pain, dizziness, nausea. Denies needs. Scheduled for right side thoracentesis and ultrasound ready for pt at this time. EARTH SCIENCE PROFESSOR taking pt down via wheelchair.
[2021-11-29 10:32] LABS: PLEURAL FLUID RBC 1000 /mm3 (0-0); PLEURAL FLUID WBC 601 /mm3
[2021-11-29 10:36] LABS: PLEURAL FLUID COLOR YELLOW
[2021-11-29 10:37] LABS: PLEURAL FLUID APPEARANCE HAZY
[2021-11-29] MEDS ORDERED: LIPITOR 40MG TA40 MG PO (11:15)
[2021-11-29] MEDS ORDERED: TOPROL XL 25MG25 MG PO (11:16)
[2021-11-29] MEDS ORDERED: LASIX 40MG TABL40 MG PO (11:16)
[2021-11-29] MEDS ORDERED: PACERONE400 MG PO (11:43)
[2021-11-29] MEDS ORDERED: PACERONE200 MG PO (11:43)
--- NOTE | 2021-11-29 14:10 | NUR ---
Discharge instructions discussed w/pt and all questions answered. IV to right AC removed w/tip intact. Pt escorted out via wheelchair w/all belongings.
== END 2021-11-29 14:10 | disposition home or self-care (01) | DRG 280 ==
LOC: COL.ER 16:16 → MEDICAL 19:00
PROVIDERS: Emergency Medicine; Internal Medicine; Internal Medicine Cardiovascular Disease; Physician Assistant; Student in an Organized Health Care Education/Training Program; ADMIT Internal Medicine
PROC: 5A2204Z Restoration of Cardiac Rhythm, Single (ICD-10-PCS; principal; 2021-11-22)
PROC: 4A023N7 Measurement of Cardiac Sampling and Pressure, Left Heart, Percutaneous Approach (ICD-10-PCS; 2021-11-22)
PROC: B2111ZZ Fluoroscopy of Multiple Coronary Arteries using Low Osmolar Contrast (ICD-10-PCS; 2021-11-22)
PROC: B24BZZ4 Ultrasonography of Heart with Aorta, Transesophageal (ICD-10-PCS; 2021-11-22)
PROC: 0W993ZZ Drainage of Right Pleural Cavity, Percutaneous Approach (ICD-10-PCS; 2021-11-28)
PROC: 0W9B3ZZ Drainage of Left Pleural Cavity, Percutaneous Approach (ICD-10-PCS; 2021-11-29)
DX: I21.4 Non-ST elevation (NSTEMI) myocardial infarction (principal); I50.23 Acute on chronic systolic (congestive) heart failure; R18.8 Other ascites; J90 Pleural effusion, not elsewhere classified; I48.91 Unspecified atrial fibrillation; D64.9 Anemia, unspecified; I11.0 Hypertensive heart disease with heart failure; Z66 Do not resuscitate; K21.9 Gastro-esophageal reflux disease without esophagitis; H35.30 Unspecified macular degeneration; E73.9 Lactose intolerance, unspecified; E11.649 Type 2 diabetes mellitus with hypoglycemia without coma; I27.20 Pulmonary hypertension, unspecified; I08.3 Combined rheumatic disorders of mitral, aortic and tricuspid valves; I25.10 Atherosclerotic heart disease of native coronary artery without angina pectoris; S00.91XA Abrasion of unspecified part of head, initial encounter; Z96.652 Presence of left artificial knee joint; W18.30XA Fall on same level, unspecified, initial encounter; Y93.89 Activity, other specified; Y92.009 Unspecified place in unspecified non-institutional (private) residence as the place of occurrence of the external cause; Z79.01 Long term (current) use of anticoagulants; Z79.82 Long term (current) use of aspirin; Z79.4 Long term (current) use of insulin; Z87.891 Personal history of nicotine dependence; Z88.0 Allergy status to penicillin; Z20.822 Contact with and (suspected) exposure to COVID-19; Z23 Encounter for immunization
CPT/HCPCS: 99223-AI; 99232-AI; 99233-AI; 99239; J1644; J1815; J1940; J2250; J2270; J2370; J2704; J3010; Q9967

== ENCOUNTER 2021-12-09 12:24 | Observation (INO) | payer MEDICARE ==
[~2021-12-09] VITALS: Ht 182.9 cm; Wt 72.7 kg
[~2021-12-09 12:24] MED LIST changes: +ELIQUIS 5MG PO; +LASIX 40MG TABL40 MG PO; +LIPITOR 40MG TA40 MG PO; +LOPRESSOR 225 MG/TAB PO; +LOPRESSOR 550 MG/TAB PO; +PACERONE200 MG PO; +PACERONE400 MG PO; +TOPROL XL 25MG25 MG PO; +ZESTRIL 20MG TA20 MG PO
[2021-12-09 13:06] LABS: BASO % 0.6 % (0.0-2.0); EOS # 0.4 K/mm3 (0.0-0.7); GRAN # 4.6 K/mm3 (1.4-6.5); GRAN % 66.4 % (42.2-75.2); HEMATOCRIT 39.9 % (42.0-52.0); HEMOGLOBIN 13.1 g/dl (13.5-18.0); LYMPH # 1.3 K/mm3 (1.2-3.4); LYMPH % 18.6 % (20.0-51.0); MEAN CELL VOLUME 82 fl (80.0-100.0); MEAN CORPUSCULAR HEMOGLOBIN 27 pg (27-31); MEAN CORPUSCULAR HGB CONC 33 g/dl (33.0-37.0); MEAN PLATELET VOLUME 9.3 fl (7.4-10.4); MONO # 0.6 K/mm3 (0.1-0.6); PLATELET COUNT 291 K/mm3 (130-400); RED BLOOD COUNT 4.86 M/mm3 (4.20-5.60); REDCELL DISTRIBUTION WIDTH-CV 14.4 % (11.5-14.5)
[2021-12-09 13:24] LABS: ALBUMIN 3.2 gm/dL (3.4-4.8); BILIRUBIN,TOTAL 0.5 mg/dL (0.2-1.2); CALCIUM 8.3 mg/dL (8.4-10.2); CREATININE, serum 0.94 mg/dL (0.72-1.25); TOTAL PROTEIN 6.9 gm/dL (6.2-8.1)
[2021-12-09 13:35] LABS: TROPONIN-I 0.044 ng/mL (0.00-0.033)
[2021-12-09 17:08] LABS: OSMOLALITY-URINE random 217 Osm/kg (50-1200)
[2021-12-09 19:50] VITALS: BP 128/78; PULSE 82; TEMP 97
--- NOTE | 2021-12-09 22:15 | NUR ---
Admitted to medical floor from ER- VSS, on room air with tocu93-34%, DX SOB, pleural effusion,cough--on heparin drip at 14.5cc/hr- next PTT at 0030,, will have thoracentesis in 48hrs per drs note,, IV lasix given as ordered- understands to save urine so we can measure output. tele on NSR,, SCD,s on, Patt aware of troponin of 0.043-- next draw is in the AM.
[2021-12-10] VITALS (7 sets, daily range): BP systolic 117–132; BP diastolic 58–79; PULSE 73–86; TEMP 97.3–98.1
--- NOTE | 2021-12-10 05:35 | NUR ---
Quiet night- heparin drip at 14.5cc/hr-next PTT at 0630, PTT at 0030 was in target range and no changes. Has been voidng large amounts of urine since lasix IV given earlier--over 2000cc out this shift
--- NOTE | 2021-12-10 06:00 | NUR ---
O2 sats 92% RA- did put on o2 at 2L/nc at this time- sitting at side of bed, no requests.
[2021-12-10 06:49] LABS: CALCIUM 9.2 mg/dL (8.4-10.2); CREATININE, serum 0.94 mg/dL (0.72-1.25); POTASSIUM 3.5 mmol/L (3.5-4.5)
[2021-12-10 06:58] LABS: TROPONIN-I 0.049 ng/mL (0.00-0.033)
[2021-12-10] MEDS ORDERED: KLOR-CON 1010 MEQ PO (07:30)
--- NOTE | 2021-12-10 07:30 | NUR ---
Pt alert and oriented resting in bed. Telemetry on, HR 80bpm. Breath sounds diminished in all ramos with expiratory wheezes bilateral peripheral ramos. O2 on @ 2L/nc, SPO2 98%. No SOA @ rest. IV site to L hands patent w/ heparin drip infusing. Pt denies c/o pain.
--- NOTE | 2021-12-10 08:00 | NUR ---
O2 discontinued by respiratory therapy. Room Air sat 94%.
--- NOTE | 2021-12-10 10:20 | NUR ---
Initial visit; patient states he is receptive to prayer. Plane Tender offered prayer and God's blessings and will keep him in her prayers and follow up while he is a patient here.
--- NOTE | 2021-12-10 10:38 | NUR ---
PTT <168, Restarting gtt -300 un/hr, TRA 11.5ml/hr (1150 un), next PTT check at 1800
--- NOTE | 2021-12-10 12:00 | NUR ---
Assessment completed, alert/oriented, vital signs stable, denies resp.difficulty at rest, lungs diminished/ especially left side lung sounds, heart RRR/ SR on tele, cards consulted with no new recommendations, eliquis on hold and Hep gtt infusing, plans for thoracentesis 12/11, discussed POC with patient and daughter, he denies needs, will continue to monitory
--- NOTE | 2021-12-10 15:24 | NUR ---
post tensioning ironworker met with patient to discuss discharge plan. Patient currently lives at home alone here in [place]. Patient reports that he is independent with his ADL's aside from driving. States that he can't see well enough to drive and that his daughter takes him everywhere. He utilizes a cane to assist with ambulation. PCP is Dr. Ridley. His auto electrical technician medications [facility] through [facility] and any short term medications are managed through [facility] ([facility]). Patient does not have a DPOA-HC located in his EMR but reports to having one established listing his daughter Kaila ([phone]). Spoke with the patient on OT's recommendation of going home with home health services. Patient polietly declines this service. [employer] list of agencies is left with the patient. Encouraged him to reach out to Dr. Ridley if he wanted to establish services post discharge. Patient is interested in having someone come out to clean him home and cook. Educated the patient that the [facility] can assist with establishing private duty caregivers if he met their criteria for eligibility. States that he is supposed to have a meeting with the [facility] soon to "makes changes" to his disability. Encouraged the patient to bring this topic up during that meeting. Discharge plan: Home
--- NOTE | 2021-12-10 20:30 | NUR ---
Initial shift assessment done- denies pain, om RA, tele on- NSR, heparin drip infusing at 11.5cc/hr {1150 units/hr}, PTT drawn at 1930 came back in target range so no changes to drip. Down to radiology in the AM for left joe danielesis- consent is signed.
--- NOTE | 2021-12-11 00:25 | NUR ---
Talked with Patt WOMACK about heparin drip and when to stop pre procedure-- order to stop heparin drip at 0130 - will not draw the PTT due at 0130 tonight--
--- NOTE | 2021-12-11 01:45 | NUR ---
Heparin drip stopped at this time per orders
[2021-12-11 03:40] VITALS: BP 122/64; PULSE 78; TEMP 97.9
--- NOTE | 2021-12-11 04:50 | NUR ---
Quiet night-- has been sleeping fairly good tonight-- no requets.
[2021-12-11 06:39] LABS: HEMATOCRIT 41.6 % (42.0-52.0); HEMOGLOBIN 13.3 g/dl (13.5-18.0); MEAN CELL VOLUME 85 fl (80.0-100.0); MEAN CORPUSCULAR HEMOGLOBIN 27 pg (27-31); MEAN CORPUSCULAR HGB CONC 32 g/dl (33.0-37.0); MEAN PLATELET VOLUME 9.9 fl (7.4-10.4); PLATELET COUNT 347 K/mm3 (130-400); RED BLOOD COUNT 4.91 M/mm3 (4.20-5.60); REDCELL DISTRIBUTION WIDTH-CV 14.7 % (11.5-14.5)
[2021-12-11 06:46] LABS: CALCIUM 9.3 mg/dL (8.4-10.2); CREATININE, serum 1.06 mg/dL (0.72-1.25); MAGNESIUM 1.9 mg/dL (1.6-2.6); POTASSIUM 3.5 mmol/L (3.5-4.5)
[2021-12-11 06:48] VITALS: BP 120/55; PULSE 84; TEMP 97.6
[2021-12-11 06:58] LABS: INR 1.3 (0.8-3.0); PROTHROMBIN TIME 14.6 SECONDS (9.7-12.8)
--- NOTE | 2021-12-11 07:37 | NUR ---
Report received from kennel technician RN; Heparin gtt. currently on hold for thoracentesis scheduled for this AM.
--- NOTE | 2021-12-11 07:50 | NUR ---
Pt alert & oriented sitting up in bed. Telemetry on & HR 84bpm. Breath sounds diminished in all ramos w/ expiratory wheezes. SPO2 @ 94 on room air. No SOB @ rest. INT to L wrist no redness/edema. Pt denies c/o pain.
--- NOTE | 2021-12-11 08:23 | NUR ---
Patient sitting on bench by window upon entering the room. Patient is a SBA d/t poor vision, moves around very well. Informed patient of thoracentesis scheduled for today and that this RN would let him know when it was time for this. I&O sheet placed on patient door, as patient is receiving IV lasix and has a 1500 FR. [facility], Olivia, will be assisting this RN with the care of the patient today.
[2021-12-11 11:30] VITALS: BP 110/54; PULSE 80; TEMP 97.7
[2021-12-11 11:52] LABS: PLEURAL FLUID RBC 1000 /mm3 (0-0); PLEURAL FLUID WBC 2359 /mm3
[2021-12-11 11:55] LABS: PLEURAL FLUID APPEARANCE HAZY; PLEURAL FLUID COLOR YELLOW
--- NOTE | 2021-12-11 13:30 | NUR ---
Patient has done well since thoracentesis. Did c/o lower back from the bed; Requested tylenol and a lidocaine patch, both provided. Patient currently sitting in the recliner and eating lunch.
[2021-12-11 15:48] VITALS: BP 122/59; PULSE 64; TEMP 97.9
[2021-12-11 20:49] VITALS: BP 100/53; PULSE 60; TEMP 97.6
[2021-12-11 22:08] LABS: BODY FLUID PH (AMS) 8 (())
[2021-12-12 00:43] VITALS: BP 108/58; PULSE 108; TEMP 98.5
[2021-12-12 04:39] VITALS: BP 117/67; PULSE 75; TEMP 97.7
[2021-12-12 06:25] LABS: BASO % 0.3 % (0.0-2.0); EOS # 0.6 K/mm3 (0.0-0.7); EOS % 4.8 % (0.0-4.0); GRAN # 8.8 K/mm3 (1.4-6.5); GRAN % 72.9 % (42.2-75.2); HEMATOCRIT 41.5 % (42.0-52.0); HEMOGLOBIN 13.5 g/dl (13.5-18.0); LYMPH # 1.8 K/mm3 (1.2-3.4); LYMPH % 14.9 % (20.0-51.0); MEAN CELL VOLUME 83 fl (80.0-100.0); MEAN CORPUSCULAR HEMOGLOBIN 27 pg (27-31); MEAN CORPUSCULAR HGB CONC 33 g/dl (33.0-37.0); MEAN PLATELET VOLUME 9.7 fl (7.4-10.4); MONO # 0.8 K/mm3 (0.1-0.6); MONO % 6.7 % (1.7-9.3); PLATELET COUNT 344 K/mm3 (130-400); RED BLOOD COUNT 5.02 M/mm3 (4.20-5.60); REDCELL DISTRIBUTION WIDTH-CV 14.6 % (11.5-14.5)
[2021-12-12 06:43] LABS: CALCIUM 9.1 mg/dL (8.4-10.2); CREATININE, serum 0.94 mg/dL (0.72-1.25); POTASSIUM 3.7 mmol/L (3.5-4.5)
[2021-12-12 07:59] VITALS: BP 115/60; PULSE 71; TEMP 97.9
--- NOTE | 2021-12-12 08:07 | NUR ---
Patient sitting in the recliner, waiting for breakfast, upon entering the room. Patient has alarms on d/t being a fall risk r/t poor vision. Patient is hopeful that he will discharge today.
[2021-12-12] MEDS ORDERED: PACERONE200 MG PO (09:20)
[2021-12-12] MEDS ORDERED: LASIX 40MG TABL40 MG PO (09:21)
[2021-12-12] MEDS ORDERED: K-DUR20 MEQ PO (09:26)
--- NOTE | 2021-12-12 10:11 | NUR ---
Plastic Cnc Machine Operator met with patient to review discharge plan as patient is set to discharge today. Patient states he plans to return home today and his daughter will be here to pick him up later. Patient still does not feel he needs Home Health at this time but advised he will call his doctor's office if he changes his mind. Discharge Plan: Home
[2021-12-12 11:32] VITALS: BP 131/55; PULSE 80; TEMP 97.8
--- NOTE | 2021-12-12 12:20 | NUR ---
Patient discharged home. IV and tele discontinued by this RN. All education provided to patient and daughter. Escorted out via wheelchair by PCT.
== END 2021-12-12 12:15 | disposition home or self-care (01) ==
LOC: COL.ER 12:24 → MEDICAL 14:07
PROVIDERS: Physician Assistant; Student in an Organized Health Care Education/Training Program; ADMIT Internal Medicine
DX: J90 Pleural effusion, not elsewhere classified (principal); R06.00 Dyspnea, unspecified; R53.83 Other fatigue; R51.9 Headache, unspecified; I50.20 Unspecified systolic (congestive) heart failure; I27.20 Pulmonary hypertension, unspecified; E87.1 Hypo-osmolality and hyponatremia; R77.8 Other specified abnormalities of plasma proteins; I25.10 Atherosclerotic heart disease of native coronary artery without angina pectoris; I48.91 Unspecified atrial fibrillation; I11.0 Hypertensive heart disease with heart failure; K22.2 Esophageal obstruction; K21.9 Gastro-esophageal reflux disease without esophagitis; H35.30 Unspecified macular degeneration; E73.9 Lactose intolerance, unspecified; D64.9 Anemia, unspecified; E11.649 Type 2 diabetes mellitus with hypoglycemia without coma; Z98.890 Other specified postprocedural states; Z20.822 Contact with and (suspected) exposure to COVID-19; Z79.899 Other long term (current) drug therapy; Z79.4 Long term (current) use of insulin; Z91.81 History of falling; Z79.01 Long term (current) use of anticoagulants; Z87.891 Personal history of nicotine dependence
CPT/HCPCS: G0378; J1644; J1815; J1940

== ENCOUNTER 2023-11-17 11:27 | Emergency (ER) | payer MEDICARE ==
[~2023-11-17] VITALS: Ht 182.9 cm; Wt 77.3 kg
[~2023-11-17 11:27] MED LIST changes: +COMBIRESP IH; +CORDARONE200 MG/TAB PO; +ENTRESTO 49 MG1 EACH PO; +FLOMAX 0.40.4 MG/CAP PO; +JARDIANCE10 PO; +K-DUR20 MEQ PO; +K-TAB20 PO; +KLONOPIN 1MG1 MG PO; +KLOR-CON 1010 MEQ PO; +MAG-OX 400400 MG/TAB PO; +MELATONIN GUMMY PO; -MELATONIN5 M1 SL; +PRILOSEC 20MG20 MG PO; -PRILOTC PO; +TOPROL XL 50MG50 MG PO; -TYLENOL 8 HR PO; +TYLENOL PM EXTR1 TA1 PO
[2023-11-17 11:36] VITALS: TEMP 98.2
[2023-11-17 12:22] LABS: BASO # 0.1 K/mm3 (0.0-0.2); BASO % 0.5 % (0.0-2.0); EOS # 0.8 K/mm3 (0.0-0.7); EOS % 8.7 % (0.0-4.0); GRAN # 5.9 K/mm3 (1.4-6.5); GRAN % 61.5 % (42.2-75.2); LYMPH % 20.5 % (20.0-51.0); MEAN CELL VOLUME 92 fl (80.0-100.0); MEAN CORPUSCULAR HEMOGLOBIN 30 pg (27-31); MEAN CORPUSCULAR HGB CONC 33 g/dl (33.0-37.0); MEAN PLATELET VOLUME 9.6 fl (7.4-10.4); MONO # 0.8 K/mm3 (0.1-0.6); MONO % 8.5 % (1.7-9.3); PLATELET COUNT 273 K/mm3 (130-400); RED BLOOD COUNT 4.36 M/mm3 (4.20-5.60); REDCELL DISTRIBUTION WIDTH-CV 13.2 % (11.5-14.5)
[2023-11-17 12:45] LABS: ALANINE AMINOTRANSFERASE 21 U/L (0-55); ALBUMIN 3.5 gm/dL (3.4-4.8); ALKALINE PHOSPHATASE 76 U/L (40-150); ANION GAP 8 mmol/L (7-16); AST,SGOT 22 U/L (5-34); BILIRUBIN,TOTAL 0.5 mg/dL (0.2-1.2); BLOOD UREA NITROGEN 9 mg/dL (8-26); CALCIUM 9.6 mg/dL (8.4-10.2); CARBON DIOXIDE 24 mmol/L (23-31); CHLORIDE 106 mmol/L (98-107); CREATINE KINASE 50 U/L (30-200); CREATININE, serum 0.86 mg/dL (0.72-1.25); GLUCOSE 156 mg/dL (70-99); MAGNESIUM 2.1 mg/dL (1.6-2.6); POTASSIUM 3.7 mmol/L (3.5-4.5); SODIUM 138 mmol/L (136-145); TOTAL PROTEIN 6.8 gm/dL (6.2-8.1)
[2023-11-17 12:54] LABS: ALCOHOL(ethanol),MEDICAL < 10 mg/dL (0-10); TROPONIN-I < 0.010 ng/mL (0.00-0.033)
[2023-11-17 13:03] LABS: PARTIAL THROMBOPLASTIN TIME 29.5 SECONDS (26.0-37.0)
[2023-11-17] MEDS ORDERED: LIPITOR 80MG80 MG PO (13:45)
[2023-11-17] MEDS ORDERED: ASTELIN NASAL S34 ML NS (13:46)
[2023-11-17 13:53] LABS: COLLECTION METHOD CLEAN CATCH
[2023-11-17 13:59] LABS: PH 6.5 (5.0-8.5); URINE APPEARANCE CLEAR (CLEAR/HAZY); URINE BLOOD TRACE (NEGATIVE); URINE COLOR YELLOW (YELLOW); URINE GLUCOSE 3+ (NEGATIVE); URINE KETONE NEGATIVE (NEGATIVE); URINE NITRATE NEGATIVE (NEGATIVE); URINE PROTEIN(semi-quant) NEGATIVE (NEGATIVE); URINE UROBILINOGEN 0.2 E.U/dL (0.2-1.0)
[2023-11-17] MEDS ORDERED: JARDIANCE25 (14:03)
[2023-11-17] MEDS ORDERED: FLONASEALLERGY NS (14:04)
[2023-11-17] MEDS ORDERED: LASIX 40MG TABL40 MG PO (14:08)
[2023-11-17] MEDS ORDERED: GLUCOTROL10 MG PO (14:09)
[2023-11-17] MEDS ORDERED: NEURONTIN300 MG/CAP PO (14:09)
[2023-11-17] MEDS ORDERED: TOPROL XL 25MG25 MG PO (14:10)
[2023-11-17] MEDS ORDERED: SINGULAIR 110 MG/TAB PO (14:11)
[2023-11-17] MEDS ORDERED: MAG-OX 400400 MG/TAB PO (14:11)
[2023-11-17] MEDS ORDERED: STRIVERDI2.5 MCG/Ac IH (14:12)
[2023-11-17] MEDS ORDERED: PRILOSEC10 MG PO (14:13)
[2023-11-17] MEDS ORDERED: KLOR-CON SPRIN10 MEQ PO (14:13)
[2023-11-17] MEDS ORDERED: ENTRESTO 49 MG1 EACH PO (14:17)
[2023-11-17] MEDS ORDERED: BASAGLAR K100 UNIT/1 SQ (14:17)
[2023-11-17] MEDS ORDERED: MELATONIN1 MG PO (14:18)
[2023-11-17 15:02] VITALS: BP 135/95; PULSE 71
== END 2023-11-17 15:05 | disposition short-term general hospital (02) ==
LOC: COL.ER 11:27
PROVIDERS: Emergency Medicine
DX: S06.5XAA Traumatic subdural hemorrhage with loss of consciousness status unknown, initial encounter (principal); R33.9 Retention of urine, unspecified; Z79.82 Long term (current) use of aspirin; Z87.891 Personal history of nicotine dependence; X58.XXXA Exposure to other specified factors, initial encounter
CPT/HCPCS: 31860; A4314